=== PATIENT | male | born 1970 | race African-American/Black ===

== ENCOUNTER 2016-10-29 08:28 | Emergency (ER) | payer OTHER, SELFPAY ==
[~2016-10-29] VITALS: Ht 177.8 cm; Wt 91.6 kg
--- NOTE | 2016-10-29 09:19 | ER.PDOC ---
General Chief Complaint: Abdomen Pain Stated Complaint: ABD PAIN Time seen by MD: 09:18 Source: patient Exam Limitations: no limitations History of Present Illness Initial Comments LLQ abdominal pain for 4 days Timing/Duration: intermittent Severity/Quality: moderate Radiation: no radiation Exacerbated by: nothing Relieved By: nothing Allergies: Coded Allergies: No Known Allergies (Unverified , 10/29/16) Vital Signs First Vital Signs Date Time Temp Pulse Resp B/P (MAP) Pulse Ox O2 Delivery O2 Flow Rate FiO2 10/29/16 08:47 98.4 72 16 95 10/29/16 08:49 172/117 (135) Last Vital Signs Date Time Temp Pulse Resp B/P (MAP) Pulse Ox O2 Delivery O2 Flow Rate FiO2 10/29/16 08:49 98.4 68 16 172/117 (135) 96 Past Medical History Medical History: diabetes, hypertension Surgical History: no surgical history Social History Smoking: less than 1 pack/day Alcohol Use: none Drug Use: none Constitutional: no symptoms reported Respiratory: no symptoms reported Cardiovascular: no symptoms reported Gastrointestinal: see HPI Genitourinary: no symptoms reported Musculoskeletal: no symptoms reported Skin: no symptoms reported All Other Systems: Reviewed and Negative Physical Exam General Appearance: No Apparent Distress, WD/WN Neck: Non-Tender, Full Range of Motion, Supple, Normal Inspection Respiratory: chest non-tender, lungs clear, normal breath sounds, no respiratory distress, no accessory muscle use Cardiovascular: Normal Peripheral Pulses, Regular Rate, Rhythm, No Edema, No Gallop, No JVD, No Murmur Gastrointestinal: Normal Bowel Sounds, No Organomegaly, No Pulsatile Mass, Tenderness (LLQ) Back: Normal Inspection, No CVA Tenderness, No Vertebral Tenderness Extremities: Normal Range of Motion, Non-Tender, Normal Inspection, No Pedal Edema, No Calf Tenderness, Normal Capillary Refill, Pelvis Stable 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, No Motor/Sensory Deficits, Alert, Normal Mood/Affect, Oriented x 3 Skin: Normal Color, Warm/Dry EKG/XRAY/CT/US CT Comments: ABD/Pelvis shows non specific findings suggestive of gastroenteritis Course Blood Pressure Systolic: 172 Blood Pressure Diastolic: 117 Blood Pressure Mean: 135 Departure Time of Disposition: 10:10 Disposition: 01 HOME, SELF-CARE Impression: Primary Impression: Gastroenteritis Additional Impressions: Uncontrolled hypertension Noncompliance w/medication treatment due to intermit use of medication Condition: Stable Referrals: YOSSI GARRETT (PCP) PRIMARY CARE PROVIDER Additional Instructions: Ibuprofen Take your blood pressure pills regularly F/U with your PCP in 2-3 days Problem Qualifiers LILLI BLANKENSHIP MD Oct 29, 2016 09:19
[2016-10-29 09:24] LABS: BILIRUBIN,URINE NEGATIVE (NEGATIVE); UROBILINOGEN,URINE NORMAL (NEGATIVE)
[2016-10-29 09:26] LABS: APPEARANCE,URINE CLEAR (CLEAR); UA COLOR YELLOW (YELLOW)
[2016-10-29 09:35] LABS: BASOPHIL % 0.3 % (0.0-0.2); EOSINOPHIL # 0.1 10^3/uL (0.0-0.2); EOSINOPHIL % 0.8 % (0.0-5.0); HEMOGLOBIN 13.1 g/dL (13.9-16.3); LYMPHOCYTES # 1.8 10^3/uL (1.0-4.8); LYMPHOCYTES % 23.3 % (24.0-44.0); MEAN CELL HGB 21.7 pg (26-34); MEAN CELL HGB CONCENTRATION 33.1 g/dL (33-37); MEAN CORP VOLUME 65.5 fL (78-100); MEAN PLATELET VOLUME 9.6 fL (7.8-11.0); MONOCYTES # 0.5 10^3/uL (0.3-0.8); NEUTROPHIL # 5.2 10^3/uL (1.8-7.7); NEUTROPHILS % 69.5 % (41.0-85.0); WHITE BLOOD CELL 7.5 10^3/uL (4.5-11.0)
--- NOTE | 2016-10-29 09:48 | NUR ---
CT PT BACK FROM CT
[2016-10-29 09:56] LABS: CALCIUM 8.9 mg/dL (8.4-10.5); CARBON DIOXIDE 27.9 mmol/L (20.0-32)
--- NOTE | 2016-10-29 09:56 | DIREP ---
PROCEDURE:CT ABDOMEN/PELVIS W/O CONTRAST COMPARISON:None. INDICATIONS:LLQ pain X 3days TECHNIQUE:Axial images were created through the abdomen and pelvis without intravenous contrast material. No oral contrast was administered. Sagittal and coronal reconstructions were performed from source images. FINDINGS: LUNG BASES:Normal. No visible pulmonary or pleural disease. LIVER:Normal. No significant liver lesions are identified. BILIARY:Normal. No visible dilatation or calcification. PANCREAS:Normal. No lesion, fluid collection, ductal dilatation, or atrophy. SPLEEN:Normal. No enlargement or focal lesion. ADRENALS:Normal. No mass or enlargement. URINARY TRACT:Normal. No focal lesions or hydronephrosis. No renal or ureteral calculi are seen. AORTA/VASCULAR:Normal. No aneurysm. RETROPERITONEUM:Normal. No mass or adenopathy. BOWEL/MESENTERY:The colon and small bowel loops are fluid filled and nondistended. No inflammatory changes are seen. No free fluid or free air is seen. The appendix is not visualized. Evaluation of the bowel is limited without oral and intravenous contrast. ABDOMINAL WALL:Normal. No mass or hernia. PELVIC ORGANS:Normal. No visible mass. Pelvic organs appropriate for patient age. BONES:Mild degenerative changes are seen in the lumbar spine with degenerative disc disease at L4-5 and L5-S1. OTHER:Negative. CONCLUSION:There are non specific findings of the colon and small bowel fluid filled without dilatation or inflammatory changes suggestive of a gastroenteritis which can be correlated clinically. Evaluation of the bowel is limited without oral and intravenous contrast. Dictated by: Thomas Doshi M.D. on 10/29/2016 at 09:51 AM
[2016-10-29] MEDS ORDERED: CATAPRES ONE (10:11)
[2016-10-29] MEDS ORDERED: CATAPRES PO STA (10:12)
[2016-10-29 10:20] VITALS: BP 178/107
== END 2016-10-29 10:18 | disposition home or self-care (01) ==
LOC: ER 08:28
DX: K52.9 Noninfective gastroenteritis and colitis, unspecified (principal); I10 Essential (primary) hypertension; Z91.14 Patient's other noncompliance with medication regimen; F17.200 Nicotine dependence, unspecified, uncomplicated; E11.9 Type 2 diabetes mellitus without complications
CPT/HCPCS: 36415; 74176; 80053; 81002; 85025; 85610; 85730; 99285